=== PATIENT | male | born 1940 | race Caucasian/White ===

== ENCOUNTER 2020-10-18 23:59 | Observation (INO) | payer MEDICARE, MEDICAID ==
[2020-10-19] MEDS ORDERED: methylPREDNISolone Sod Succ/PF 125 MG/2 ML VIAL ONE (00:14)
[2020-10-19] MEDS ORDERED: Cefepime 2 GM VIAL ONE (00:21)
[2020-10-19] MEDS ORDERED: Vancomycin 1 GM/200 ML BAG ONE (00:21)
[2020-10-19 00:36] LABS: Hemoglobin 9.8 g/dL (14.0-18.0); Mean Corpuscular Hemoglobin 26.4 pg (27.0-31.0); Mean Corpuscular Volume 85.1 fL (78.0-98.0); Mean Platelet Volume 8.5 fL (7.4-10.4); Platelet Count 289 thou/uL (130-400); RBC Distribution Width 16.1 % (11.5-14.5); Red Blood Cell (RBC) Count 3.71 mill/uL (4.70-6.10); White Blood Cell (WBC) Count 10.6 thou/uL (4.8-10.8)
[2020-10-19 00:48] LABS: Bilirubin Negative (Negative); Blood, Urine Negative (Negative); Clarity Clear (Clear); Glucose, Urine (Dipstick) Normal (Negative); Ketone, Urine Negative (Negative); Leukocyte Negative Leu/uL (Negative); Nitrite Negative (Negative); Protein, Urine (Dipstick) Negative (Neg-Trace); Specific Gravity, Urine 1.016 (1.002-1.036); Urobilinogen Normal mg/dL (Less than 2)
[2020-10-19 00:53] LABS: Band 2 % (5-11); Eosinophils 1 % (0-10); Lymphocytes 16 % (21-51); MDiff Complete? YES; Monocytes 4 % (0-10); Neutrophil 77 % (42-75)
[2020-10-19 01:17] LABS: Sodium 141 mmol/L (136-145)
[2020-10-19 01:18] LABS: ALT (SGPT) 11 U/L (8-55); AST (SGOT) 18 U/L (5-34); Albumin 3.4 g/dL (3.4-4.8); Alkaline Phosphatase 65 U/L (40-110); Anion Gap 13 mmol/L (10-20); BUN (Urea Nitrogen) 35 mg/dL (8.4-25.7); Bilirubin, Total 0.2 mg/dL (0.2-1.2); Calc. Creatinine Clearance 0 mL/min (70-130); Calcium 8.3 mg/dL (7.8-10.44); Carbon Dioxide 27 mmol/L (23-31); Chloride 106 mmol/L (98-107); Globulin 3.3 g/dL (2.4-3.5); Glucose 146 mg/dL (83-110); Potassium 5.1 mmol/L (3.5-5.1); Protein, Total 6.7 g/dL (5.8-8.1)
--- NOTE | 2020-10-19 02:16 | PDOC.HHP ---
Hospitalist HPI - History of Present Illness Weakness History of Present Illness: The patient is a 79-year-old male with a past medical history significant for COPD, DM 2 that presents to the emergency department via EMS for the above complaint. The patient reports feeling generally weak for the past several days. He reports 2 falls. He denies any LOC, or vomiting. He did not hit his head or have neck pain. Denies any headache or focal weakness weakness to his extremities. He reports that he just slid down to the ground. He also reports having subjective fever for the past 2 days. He reports increased cough and thick white sputum. He denies any chest pain, heart palpitation or lightheadedn ess. No swelling to his lower extremities. He has no history of DVT/PE. He denies any abdominal pain, nausea, vomiting, diarrhea. He denies any dysuria or hematuria. He has no known sick contacts. Denies any loss of smell or taste. The patient called EMS. Upon arrival, the patient was noted to be febrile with a T-max of 100.6F, tachypneic RR 24, tachycardic HR 112, SPO2 95% on 3 L nasal cannula with normal BP. Patient was taken to emergency department for further evaluation. ED Course: VITAL SIGNS SunOct 19, 2020 00:09 GILLIAN Elder Miranda BP: 123/53, Pulse: 112, Resp: 27, Pain: 4, O2 sat: 95 on (3L Oxygen), Time: 00:09. VITAL SIGNS SunOct 19, 2020 00:28 GILLIAN Elder Miranda BP: 116/74, Pulse: 108, Resp: 26, Temp: 98.3 (Oral), O2 sat: 96 on (3L Oxygen), Time: 10/19/2020 00:28. Medication administration: DuoNeb 3 mL Nebulize Acknowledged 00:23 10/19/2020 vancomycin in dextrose 5 % 1 g IV Piggy Back Given 00:34 10/19/2020 cefepime injection 2 g IV Piggy Back Given 00:22 10/19/2020 sodium chloride 0.9 % intravenous 1000 mL IV Fluid Infusion Given 00:19 10/19/2020 methylPREDNISolone sodium succinate inje 125 mg IV Push Given 00:18 10/19/2020 Hospitalist ROS - Review of Systems All other systems reviewed; all pertinent +/- noted in HPI/Subj - Medication Medications: metFORMIN TABLET : Strength - 1,000 mg : ORAL Patient Dose: 1 tab(s) Oral once a day. Zocor TABLET : Strength - 5 mg : ORAL Patient Dose: 1 tab(s) Oral once a day. glipiZIDE TABLET : Strength - 5 mg : ORAL Patient Dose: 1 tab(s) Oral once a day. Flomax CAPSULE, EXT RELEASE 24 HR : Strength - 0.4 mg : ORAL Patient Dose: 1 tab(s) Oral once a day Allergies: Tylenol Hospitalist History - Past Medical History Source: patient, RN notes reviewed Cardiac: reports: HTN, Hyperlipidemia Pulmonary: reports: COPD Renal/: reports: Benign prostatic enlarg. - Past Surgical History Past Surgical History: reports: Other (AICD (2008), gastric ulcers) - Family History Family History: denies: cardiac disorder - Social History Smoking Status: Current every day smoker (1 pack/day times greater than 35 years) Tobacco Type: cigarettes Alcohol: reports: None Drugs: reports: none Living Situation: Alone Activity level: independent ambulation - Exam General Appearance: awake alert. negative: ill appearing (Uncomfortable in appearance) General - other findings: Mild distress Eye: anicteric sclera ENT: normocephalic atraumatic Neck: supple, symmetric Heart: RRR, no murmur, no gallops, no rubs, normal peripheral pulses Respiratory: normal chest expansion, rhonchi, tachypneic, wheezes Gastrointestinal: soft, non-tender, non-distended, normal bowel sounds, no guarding, no rigidity Gastrointestinal - other findings: No rebound tenderness Extremities: no cyanosis, no edema Skin: no rashes Neurological: cranial nerve grossly intact, no focal deficits Psychiatric: normal affect, A&O x 3 Hospitalist Results - Labs Result Diagrams: 10/19/20 03:18 10/19/20 00:20 Lab results: WBC 10.6 thou/uL (4.8-10.8) 10/19/20 00:20 Hgb 9.8 g/dL (14.0-18.0) L 10/19/20 00:20 Hct 31.5 % (42.0-52.0) L 10/19/20 00:20 MCV 85.1 fL (78.0-98.0) 10/19/20 00:20 Plt Count 289 thou/uL (130-400) 10/19/20 00:20 Band Neuts % (Manual) 2 % (5-11) L 10/19/20 00:20 Sodium 141 mmol/L (136-145) 10/19/20 00:20 Potassium 5.1 mmol/L (3.5-5.1) 10/19/20 00:20 Chloride 106 mmol/L (98-107) 10/19/20 00:20 Carbon Dioxide 27 mmol/L (23-31) 10/19/20 00:20 BUN 35 mg/dL (8.4-25.7) H 10/19/20 00:20 Creatinine 2.05 mg/dL (0.7-1.3) H 10/19/20 00:20 Glucose 146 mg/dL (83-110) H 10/19/20 00:20 Lactic Acid 1.4 mmol/L (0.5-2.2) 10/19/20 00:20 Calcium 8.3 mg/dL (7.8-10.44) 10/19/20 00:20 Total Bilirubin 0.2 mg/dL (0.2-1.2) 10/19/20 00:20 AST 18 U/L (5-34) 10/19/20 00:20 ALT 11 U/L (8-55) 10/19/20 00:20 Alkaline Phosphatase 65 U/L (40-110) 10/19/20 00:20 Troponin I Less than 0.010 ng/mL (< 0.028) 10/19/20 00:20 B-Natriuretic Peptide 16.4 pg/mL (0-100) 10/19/20 00:20 Serum Total Protein 6.7 g/dL (5.8-8.1) 10/19/20 00:20 Albumin 3.4 g/dL (3.4-4.8) 10/19/20 00:20 Urine Ketones Negative mg/dL (Negative) 10/19/20 00:39 Urine Blood Negative (Negative) 10/19/20 00:39 Urine Nitrite Negative (Negative) 10/19/20 00:39 Ur Leukocyte Esterase Negative [place]/uL (Negative) 10/19/20 00:39 - EKG Interpretation EKG: Sinus tachycardia, no ST elevations - Radiology Interpretation Chest x-ray Status: pending Hospitalist H&P A/P - Problem (1) Acute respiratory failure with hypoxia Code(s): J96.01 - ACUTE RESPIRATORY FAILURE WITH HYPOXIA Status: Acute (2) COPD exacerbation Code(s): J44.1 - CHRONIC OBSTRUCTIVE PULMONARY DISEASE W (ACUTE) EXACERBATION Status: Acute (3) DENISSE (acute kidney injury) Code(s): N17.9 - ACUTE KIDNEY FAILURE, UNSPECIFIED Status: Acute (4) DM2 (diabetes mellitus, type 2) Status: Chronic (5) HTN (hypertension) Code(s): I10 - ESSENTIAL (PRIMARY) HYPERTENSION Status: Chronic (6) BPH (benign prostatic hyperplasia) Code(s): N40.0 - BENIGN PROSTATIC HYPERPLASIA WITHOUT LOWER URINRY TRACT SYMP Status: Chronic - Plan Plan: 79/M with PMH COPD, DM 2, HTN presents for generalized weakness. Admit to telemetry floor, inpatient status. Expected length of stay greater than 2 midnights. Presented tachypneic, tachycardic, hypoxic, febrile, NL BP. EKG sinus tachycardia, no ST elevations, no right axis deviation. CXR pending Troponin negative, BNP 16.4 LA 1.4, WBC 10.6, blood culture/Covid test pending. UA unremarkable. #Acute respiratory failure with hypoxia Suspected pneumonia vs Covid PNA. Order CT chest and Influenza test. Check procalcitonin, DD, CRP. Received vancomycin and cefepime in ER. Start Levaquin. Isolation precautions for now, Covid test pending. Blood cultures pending. Supplemental oxygen. #COPD exacerbation Continue steroids, nebs, antibiotics. Supplemental oxygen. #DENISSE Suspected. Presented creatinine 2.05. Previous reading 2014. Renal ultrasound to rule out obstruction. Avoid nephrotoxic medications when possible. Recheck BMP in a.m. #DM2 Takes metformin and glipizide at home. We will hold oral antihyperglycemics for now. Start moderate ISS. Accu-Cheks AC at bedtime. #HTN Presented normotensive. Takes no home medications for hypertension. Continue to monitor BP. #BPH Restart home dose Flomax. Lovenox for DVT prophylaxis. Protonix for GI prophylaxis. Full code. Discussed case with Dr. Evaristo Baig.
[2020-10-19 02:47] LABS: SARS-CoV-2 NAA Rapid Test Not Detected (NotDetected)
[2020-10-19] MEDS ORDERED: HumaLOG 300 UNITS/3 ML VIAL SC PRN ×2 (03:02)
[2020-10-19] MEDS ORDERED: Dextrose 5% in Water 1,000 ML IV PRN (03:02)
[2020-10-19] MEDS ORDERED: Dextrose 50% Abboject 50 ML SYRINGE SLOW IVP PRN (03:02)
[2020-10-19] MEDS ORDERED: Ibuprofen 800 MG TAB PO PRN (03:03)
[2020-10-19] MEDS ORDERED: Calcium Carbonate 500 MG ChewTAB PO PRN (03:04)
[2020-10-19] MEDS ORDERED: Ondansetron ODT 4 MG TAB PO PRN (03:04)
[2020-10-19] MEDS ORDERED: Senokot S 8.6-50 MG TAB PO PRN (03:04)
[2020-10-19] MEDS ORDERED: Guaifenesin DM 100-10/5 ML UDCUP PO PRN (03:04)
[2020-10-19] MEDS ORDERED: Ondansetron PF 4 MG/2 ML Vial IVP PRN (03:04)
[2020-10-19] MEDS ORDERED: Bacteriostatic Water 30 ML VIAL FS PRN (03:15)
[2020-10-19 03:35] LABS: #Eosinphils 0.1 thou/uL (0.0-0.7); #Lymphocytes 0.9 thou/uL (1.20-3.40); #Monocytes 0.2 thou/uL (0.11-0.59); #Neutrophils 10.3 thou/uL (1.40-6.50); %Basophils 0.1 % (0.0-1.0); %Eosinophils 0.4 % (0.0-10.0); %Lymphocytes 7.9 % (21.0-51.0); %Monocytes 1.6 % (0.0-10.0); %Neutrophils 89.9 % (42.0-75.0); Hemoglobin 10.1 g/dL (14.0-18.0); Mean Corpuscular HGB CONC 30.9 g/dL (32.0-36.0); Mean Corpuscular Hemoglobin 26.2 pg (27.0-31.0); Mean Corpuscular Volume 84.7 fL (78.0-98.0); Mean Platelet Volume 8.2 fL (7.4-10.4); Platelet Count 272 thou/uL (130-400); RBC Distribution Width 16.1 % (11.5-14.5); Red Blood Cell (RBC) Count 3.85 mill/uL (4.70-6.10); White Blood Cell (WBC) Count 11.4 thou/uL (4.8-10.8)
[2020-10-19 03:52] LABS: Anion Gap 14 mmol/L (10-20); BUN (Urea Nitrogen) 31 mg/dL (8.4-25.7); Calc. Creatinine Clearance 0 mL/min (70-130); Calcium 8.2 mg/dL (7.8-10.44); Carbon Dioxide 22 mmol/L (23-31); Chloride 109 mmol/L (98-107); Glucose 179 mg/dL (83-110); Potassium 4.8 mmol/L (3.5-5.1); Sodium 140 mmol/L (136-145)
[2020-10-19 03:56] LABS: Troponin I 0.022 ng/mL (< 0.028)
[2020-10-19] MEDS ORDERED: methylPREDNISolone Sod Succ 40 MG VIAL IVP SCH (06:00)
[2020-10-19] MEDS ORDERED: methylPREDNISolone Sod Succ 40 MG VIAL ONE (06:59)
[2020-10-19 07:09] LABS: Troponin I Less than 0.010 ng/mL (< 0.028)
--- NOTE | 2020-10-19 07:44 | CT ---
PRELIMINARY REPORT/[facility]/EMERGENCY AFTER HOURS PROCEDURE: EXAM: CT Chest Without Intravenous Contrast. CLINICAL HISTORY: M79, pt reports diff breathing and generalized weakness. 2 days ago is when he bega n to feel it. Hypoxic. TECHNIQUE: Axial computed tomography images of the chest without intravenous contrast. COMPARISON: None provided. FINDINGS: LUNGS: Scattered punctate groundglass nodularities throughout the bilateral lungs, with small number of scattered slightly larger groundglass opacities, some with subtle appearance of tree-in-bud opacities. Peribronchial thickening bilaterally. PLEURAL SPACES: No pleural effusion. No pneumothorax. HEART AND MEDIASTINUM: No cardiomegaly. No significant pericardial effusion. Atherosclerotic calcifi cations of the coronary arteries. LYMPH NODES: Subtle prominence of a small number of mediastinal lymph nodes, with index lower paratra cheal lymph node measuring approximately 9 mm in short axis diameter, seen on image 24 of series 2, and this appearance is nonspecific. CHEST WALL AND UPPER ABDOMEN: Mild fatty infiltration of the pancreas. Mild bilateral perinephric fa t stranding.. Implanted metallic device within the anterior left chest. Moderate bilateral gynecomastia. BONES: No acute osseous abnormality. Multiple old healed left rib fractures. Degenerative changes o f the thoracic spine. IMPRESSION: 1. Pulmonary findings may represent a combination of chronic disease, possibly related to a history of smoking, and subtle early developing multilobar infectious or inflammatory process. 2. Peribronchiolar thickening bilaterally may be related to bronchitis. ELECTRONICALLY SIGNED BY: Giancarlo Flanagan MD Oct 19, 2020 4:02:18 AM [facility] FINAL REPORT CT CHEST WITHOUT IV CONTRAST: I agree with report by Dr. Giancarlo Flanagan of [facility]. Transcribed Date/Time: 10/19/2020 8:08 AM
--- NOTE | 2020-10-19 07:53 | RAD ---
XR Chest 1 View Portable HISTORY: Weakness, fall COMPARISON: 03/22/2016 FINDINGS: The heart size is normal. The lungs are well expanded without focal areas of consolidation, pneumothorax or pleural effusions. Mild chronic changes again seen.. IMPRESSION: No radiographic evidence of acute cardiopulmonary process.
--- NOTE | 2020-10-19 08:27 | ULT ---
Renal ultrasound: 10/19/2020 COMPARISON: None HISTORY: Acute renal insufficiency TECHNIQUE: Multiplanar grayscale sonographic imaging of the kidneys and urinary bladder obtained. FINDINGS: Right kidney measures 11.8 x 5.1 x 5.1 cm. Urinary bladder volume is 456 cc. Left kidney me asures 10.9 x 5.6 x 6.4 cm. No hydronephrosis, mass lesion, or discrete stone noted on either side. IMPRESSION: Grossly unremarkable renal ultrasound.
[2020-10-19] MEDS ORDERED: Pantoprazole 40 MG VIAL IVP SCH (09:00)
[2020-10-19] MEDS ORDERED: Enoxaparin Sodium 40 MG/0.4 ML SYRINGE ONE (09:16)
[2020-10-19] MEDS ORDERED: Pantoprazole 40 MG VIAL ONE ×2 (09:16→09:45)
[2020-10-19 13:59] VITALS: BP 142/95
--- NOTE | 2020-10-19 18:21 | PDOC.DS.DS ---
Provider - Provider Date of Admission: 10/19/20 02:25 Date of Discharge: 10/19/20 Admitting Provider: Evaristo Elise MD Primary Care Physician: JANESSA Vazquez Course - Hospital Course Hospital Course: Discharge Diagnoses: 1. Acute hypoxic respiratory failure secondary to COPD exacerbation 2. Multiple falls 3. Acute kidney injury 4. Diabetes Brief HPI: This is a 79-year-old male with past medical history of diabetes, COPD who presented to the emergency room with a fall. Patient states that he had gone to the bathroom and lowered himself to the ground. He denied any presyncopal symptoms. He denied passing out. According to his neighbor, the patient had been feeling weak for a few days. He had also fallen multiple times in the past 2 months. Neighbor also thought he might of had a fever. His neighbor brought him to the ER due to concerns for Covid. When he presented to the ER he was noted to be wheezing. His chest CT showed bronchitis with chronic inflammatory process. He was given vanc, cefepime and IV steroids and admitted for further workup. Hospital Course: COPD exacerbation: Patient was started on IV steroids. He was initially placed on oxygen but was weaned off oxygen and did well ambulating on room air without any desaturation. He was switched to prednisone for additional 5 days. He also be discharged with Levaquin for 7 days. Multiple falls: the patient reportedly had 4 falls in the past 2 months per neither. Patient states that he did not have any presyncopal symptoms or weakness in his legs. He states that he lowered himself to the ground but did not pass out. He is seen by physical therapy who recommended that the patient can be safely discharged home DENISSE: Patient presented with a creatinine of 2 which improved to 1.7. Patient was taking lisinopril at home. He was advised to discontinue this and switch to amlodipine 5 mg for his blood pressure. He should follow-up with his PCP in a week and repeat his cleaning number Pertinent Studies: Chest X ray: no acute disease Renal ultrasound: unremarkable CT chest 10/19: Multilobar infectious or inflammatory process. Peribronchiolar thickening bilaterally may be related to bronchitis Resuscitation Status: 10/19/20 03:04 Resuscitation Status Routine Co-Sign Provider: Resuscitation Status: FULL: Full Resuscitation Discussed with: patient - Labs Lab Results: 10/19/20 03:18 10/19/20 03:18 Abnormal Lab Results - Last 48 hrs 10/19/20 00:20: BUN 35 H, Creatinine 2.05 H, Albumin/Globulin Ratio 1.0 L 10/19/20 00:20: RBC 3.71 L, Hgb 9.8 L, Hct 31.5 L, MCH 26.4 L, MCHC 31.0 L, RDW 16.1 H, Neutrophils % (Manual) 77 H, Band Neuts % (Manual) 2 L, Lymphocytes % (Manual) 16 L 10/19/20 03:18: Chloride 109 H, Carbon Dioxide 22 L, BUN 31 H, Creatinine 1.73 H 10/19/20 03:18: TSH 3rd Generation 0.3494 L 10/19/20 03:18: WBC 11.4 H, RBC 3.85 L, Hgb 10.1 L, Hct 32.6 L, MCH 26.2 L, MCHC 30.9 L, RDW 16.1 H, Neutrophils % 89.9 H, Lymphocytes % 7.9 L, Neutrophils # 10.3 H, Lymphocytes # 0.9 L 10/19/20 03:48: D-Dimer 0.90 H - Physical Exam Vitals: Vital Signs (12 hours) Pulse Pulse Pulse Resp BP BP Pulse Ox 10/19/20 14:26 68 16 94 L 10/19/20 12:50 87 88 142/95 H 168/64 H 10/19/20 08:15 75 21 H 99 Pulse Ox Pulse Ox 10/19/20 14:26 10/19/20 12:50 93 L 93 L 10/19/20 08:15 Physical Exam: The patient was seen and examined on the day of discharge. Problem - Discharge Plan Plan of Treatment: Follow up with your primary care doctor in a week and have your kidney function test repeated. Stop your lisinopril and switch to amlodipine 5 mg daily for now. - Time spent with Patient (mins): 35 Plan - Discharge Medications Prescriptions: Levofloxacin [Levaquin] 750 mg PO DAILY #7 tab Amlodipine [Norvasc] 5 mg PO DAILY #30 tab predniSONE 40 mg PO DAILY #10 tab Home Medications: Medication Instructions Recorded Confirmed Type Albuterol Sulfate [Albuterol 0.63 mg NEB Q6HR PRN 10/19/20 10/19/20 History Sulfate Neb] Amlodipine [Norvasc] 5 mg PO DAILY #30 tab 10/19/20 Rx Gabapentin [Neurontin] 300 mg PO TID 10/19/20 10/19/20 History Levofloxacin [Levaquin] 750 mg PO DAILY #7 tab 10/19/20 Rx Pantoprazole [Protonix] 40 mg PO DAILY 10/19/20 10/19/20 History Simvastatin [Zocor] 5 mg PO QPM 10/19/20 10/19/20 History Tamsulosin HCl [Flomax] 0.4 mg PO DAILY 10/19/20 10/19/20 History metFORMIN [Glucophage] 1,000 mg PO BID-WM 10/19/20 10/19/20 History predniSONE 40 mg PO DAILY #10 tab 10/19/20 Rx Allergies: acetaminophen [From Tylenol] Allergy (Unverified 10/19/20 03:06) - Discharge Instructions Activity:: Activity as Tolerated Nourishment:: Diabetic Diet, Heart Healthy Diet - Follow up Plan Referrals: Kamila Avila FNP [Primary Care Provider] - 7 Days (PLEASE CALL DR OFFICE TO SCHEDULE APPOINTMENT) Disposition: HOME Quality - Care Measures CORE MEASURES:: N/A
[2020-10-20] MEDS ORDERED: Enoxaparin Sodium 40 MG/0.4 ML SYRINGE SC SCH (09:00)
== END 2020-10-19 16:07 | disposition home or self-care (01) ==
LOC: ERS 23:59 → INTOOBSV 10-19 02:25 → ERHOLD 10-19 02:25
PROVIDERS: ADMIT Internal Medicine; ATTEND Internal Medicine
DX: J44.1 Chronic obstructive pulmonary disease with (acute) exacerbation (principal); J96.01 Acute respiratory failure with hypoxia; R29.6 Repeated falls; N17.9 Acute kidney failure, unspecified; E11.9 Type 2 diabetes mellitus without complications; E78.5 Hyperlipidemia, unspecified; I10 Essential (primary) hypertension; N40.0 Benign prostatic hyperplasia without lower urinary tract symptoms; F17.210 Nicotine dependence, cigarettes, uncomplicated; M06.9 Rheumatoid arthritis, unspecified; D64.9 Anemia, unspecified; Z79.84 Long term (current) use of oral hypoglycemic drugs; Z79.899 Other long term (current) drug therapy; Z88.6 Allergy status to analgesic agent; Z95.810 Presence of automatic (implantable) cardiac defibrillator; Z20.828 Contact with and (suspected) exposure to other viral communicable diseases
CPT/HCPCS: 71045; 71250; 76770; 80048; 81003; 82962; 83605; 83735; 83880; 84145; 84484 ×2; 85379; 87040; 87149 ×2; 93005; 94640 ×2; 96365; 96375; 96376; 97116; 97139; 99285; G0378; U0002; 36415; 36416; 80053; 84443; 85025; C9113; J0692; J1650; J1956; J2920; J2930; J3370; J7620